=== PATIENT | female | born 1950 | race Caucasian/White ===

== ENCOUNTER → 2024-11-07 14:19 | Outpatient (BNVA) | payer MEDICARE, SELFPAY | PROVIDERS: PCP Family Medicine; Visit Provider Family Medicine | DX: E78.5 Hyperlipidemia, unspecified (principal); R91.8 Other nonspecific abnormal finding of lung field; C34.90 Malignant neoplasm of unspecified part of unspecified bronchus or lung; Z95.828 Presence of other vascular implants and grafts; K21.9 Gastro-esophageal reflux disease without esophagitis; C50.919 Malignant neoplasm of unspecified site of unspecified female breast; M54.50 Low back pain, unspecified; R00.0 Tachycardia, unspecified | CPT/HCPCS: 85025 ==

== ENCOUNTER 2024-11-18 11:17 | Outpatient (CLI) | payer MEDICARE, SELFPAY ==
--- NOTE | 2024-11-18 11:30 | PETR_ITS ---
PROCEDURE INFORMATION: Exam: PET/CT Skull Base to Mid-thigh Exam date and time: 11/18/2024 12:52 PM Age: 74 years old Clinical indication: Condition or disease; Primary cancer: HX of breast cancer, lumpectomy chemo radiation. Lung mets or lung cancer 2 years later. New lung nodule; Follow-up oncological assessment LABS AND CLINICAL REPORTS: Glucose: 100 mg/dl Treatment strategy for malignancy (PET staging): Restaging (PS) TECHNIQUE: Imaging protocol: Following at least four-hour fasting and following the injection of radiopharmaceutical, low dose CT images were obtained. Then, PET images were obtained. Attenuation corrected images were constructed using the CT scan. Fused images of PET and CT were reviewed. The standardized uptake values (SUV) reported below are maximum values within a region of interest, expressed in gm/ml. Exam includes orbital meatal line to mid-thigh. SUV normalization method: BodyWeight Radiopharmaceutical: 11.21 mCi F-18 FDG (Fluorodeoxyglucose), IV. Time of imaging post radiopharmaceutical administration: 46 minutes Injection site: left ac COMPARISON: No relevant prior studies available. FINDINGS: Tubes, catheters and devices: Right-sided Port-A-Cath terminates at the superior cavoatrial junction. Brain: Visualized brain has normal physiologic uptake. Pharynx: No abnormal uptake. Larynx: No abnormal uptake. Lungs, pleura and trachea: Minimal FDG uptake is seen associated with the 9 mm left upper lobe pulmonary nodule with SUV max 1.4. Calcified granuloma in the right lung. Right basilar atelectasis. Heart: Normal physiologic uptake. Mediastinal space: No abnormal uptake. Liver: No abnormal uptake. Gallbladder and biliary ducts: Cholelithiasis. Pancreas: No abnormal uptake. Spleen: Calcified splenic granulomas. Adrenal glands: No abnormal uptake. Kidneys and ureters: Normal physiologic uptake. Stomach and bowel: Large hiatal hernia containing stomach and transverse colon. Reproductive: Pessary device in the vagina. Vasculature: No abnormal uptake. Lymph nodes: No abnormal uptake. No lymphadenopathy in the head, neck, chest, abdomen, pelvis, and extremities. Skeleton: There is some increased FDG uptake within the inferior aspect of the T11 vertebral body with SUV max 4.6. No definite associated lesion is seen. Soft tissues: No abnormal uptake in the visualized head, neck, chest, abdomen, pelvis, and extremities. METRICS: Mediastinal blood pool: SUV max is 2.9 Liver uptake: SUV max is 3.5 PET/PET skull to thigh SUBS [id number] IMPRESSION: 1. Minimal FDG uptake is seen associated with the 9 mm left upper lobe pulmonary nodule. This could be infectious or inflammatory, though attention on follow-up is recommended, as metastatic disease is not entirely excluded. 2. There is some increased FDG uptake within the inferior aspect of the T11 vertebral body with SUV max 4.6. No definite associated lesion is seen. Consider MRI to further evaluate. A subtle metastatic lesion or acute/subacute compression fracture is not excluded.
== END 2024-11-18 11:18 | disposition home or self-care (01) ==
PROVIDERS: PCP Family Medicine; Visit Provider Family Medicine
DX: R91.1 Solitary pulmonary nodule (principal); Z85.3 Personal history of malignant neoplasm of breast; J98.11 Atelectasis; K80.20 Calculus of gallbladder without cholecystitis without obstruction; K44.9 Diaphragmatic hernia without obstruction or gangrene; Z96.0 Presence of urogenital implants
CPT/HCPCS: 78815; A9552

== ENCOUNTER 2024-12-08 14:26 | Oncology outpatient (recurring) (ONCR) | payer MEDICARE, SELFPAY ==
[2024-12-08 16:16] LABS: Basophils # 0.1 10^3/uL (0.0-0.1); Basophils % 1.1 %; Eosinophils # 0.2 10^3/uL (0.0-0.8); Eosinophils % 3.2 %; Hematocrit 37.6 % (36-47); Lymphocytes # 1.9 10^3/uL (0.8-4.8); Lymphocytes % 35.3 %; Mean Corpuscular HGB Conc 33.8 g/dL (30-55); Mean Corpuscular Hemoglobin 29.5 pg (27-33); Mean Corpuscular Volume 87.4 fl (85-98); Mean Platelet Volume 9.3 fL (7.4-10.4); Monocytes # 0.4 10^3/uL (0.2-0.9); Monocytes % 8.2 %; Neutrophils # 2.78 10^3/uL (1.8-7.7); Neutrophils % 51.8 %; Nucleated Red Blood Cells % 0 %; Platelet Count 168 10^3/cmm (157-399); Red Cell Distribution Width 12.6 % (12.1-15.1); White Blood Count 5.36 10^3/uL (3.29-11.43)
[2024-12-08 16:50] LABS: Alanine Aminotransferase 9 U/L (0-33); Albumin Level 4.2 g/dL (3.5-5.2); Alkaline Phosphatase 113 U/L (35-105); Anion Gap 15.8 (5-19); Aspartate Amino Transferase 15 U/L (0-32); Blood Urea Nitrogen 14 mg/dL (8-23); CA 15-3 21.6 U/mL (0-25); Carbon Dioxide 26 mmol/L (22-29); Chloride 106 mmol/L (98-107); Creatinine Clr Calc Pharmacy 64.5803; Globulin 2.3 g/dL (1.3-4.6); Glucose 107 mg/dL (65-115); Lactate Dehydrogenase 195 U/L (135-214); Osmolality Calculated 299 mOsm/kg (285-295); Potassium 3.8 mmol/L (3.5-5.1); Sodium 144 mmol/L (136-145); Total Protein 6.5 g/dL (6.6-8.7)
== END 2024-12-09 23:59 | disposition home or self-care (01) ==
PROVIDERS: PCP Family Medicine; Visit Provider Internal Medicine
DX: C78.02 Secondary malignant neoplasm of left lung (principal); Z85.3 Personal history of malignant neoplasm of breast; R91.1 Solitary pulmonary nodule; R00.0 Tachycardia, unspecified; K21.9 Gastro-esophageal reflux disease without esophagitis; Z46.89 Encounter for fitting and adjustment of other specified devices; Z95.828 Presence of other vascular implants and grafts; Z92.21 Personal history of antineoplastic chemotherapy; Z92.3 Personal history of irradiation; Z92.25 Personal history of immunosuppression therapy
CPT/HCPCS: 36591; 80053; 83615; 85025; 86300; 99205

== ENCOUNTER 2024-12-29 12:22 | Oncology outpatient (recurring) (ONCR) | payer MEDICARE, SELFPAY ==
--- NOTE | 2024-12-14 13:00 | MRR_ITS ---
PROCEDURE INFORMATION: Exam: MR Thoracic Spine Without and With Contrast Exam date and time: 12/14/2024 1:30 PM Age: 74 years old Clinical indication: Metastatic breast cancer with lung metastasis. Followup of abnormal radiologic finding in the thoracic spine. Indeterminate increased uptake within T11 vertebral body on the prior PET-CT on 11/18/2024, metastasis versus acute/subacute compression fracture. TECHNIQUE: Imaging protocol: Magnetic resonance imaging of the thoracic spine without and with contrast. Contrast material: MULTIHANCE; Contrast volume: 14 ml; Contrast route: INTRAVENOUS (IV); COMPARISON: PT PET skull to thigh INIT [id number] 11/18/2024 and 04/08/2024 FINDINGS: Bones/joints: Normal alignment. No abnormal signal suspicious for mass. Moderate compression fracture of T12 with anterior wedging and slight retropulsion is stable since 11/18/2024 new since 04/08/2024 with mild bone marrow edema along the upper endplate and slight contrast enhancement indicating late subacute nature. Mild compression fracture of T11 with no anterior wedging or retropulsion is stable since 11/18/2024 new since 04/08/2024 with extensive bone marrow edema and contrast enhancement involving the entire vertebral body. Spinal cord: Normal signal. No cord compression. T1-T2: No significant disc disease. No spinal stenosis. T2-T3: No significant disc disease. No spinal stenosis. T3-T4: No significant disc disease. No spinal stenosis. T4-T5: No significant disc disease. No spinal stenosis. T5-T6: No significant disc disease. No spinal stenosis. T6-T7: Small left central disc protrusion. No spinal stenosis. T7-T8: Minimal diffuse central disc bulge. No spinal stenosis. T8-T9: Minimal diffuse central disc bulge. No spinal stenosis. T9-T10: Minimal diffuse central disc bulge. No spinal stenosis. T10-T11: Mild diffuse central disc bulge. No spinal stenosis. T11-T12: Small diffuse marginal disc osteophyte complex. No spinal stenosis. T12-L1: Diffuse broad-based central disc bulge. No severe spinal canal stenosis. No significant neural foraminal narrowing. Soft tissues: Incidental 8 mm cyst in the left T12-L1 neural foramen. Stomach and bowel: There is stable large hiatal hernia containing the entire stomach. MR/MR thoracic spine wo/w [id number] IMPRESSION: No findings suspicious for bone metastases. Acute/subacute mild compression fracture of T11 and late subacute moderate compression fracture of T12 stable since 11/18/2024 new since 04/08/2024.
[2024-12-14] MEDS: gadobenate dimeglumine 20 mL vial 14 ML IV (14:04)
== END 2025-01-09 23:59 | disposition home or self-care (01) ==
PROVIDERS: PCP Family Medicine; Visit Provider Internal Medicine
DX: Z08 Encounter for follow-up examination after completed treatment for malignant neoplasm (principal); Z85.3 Personal history of malignant neoplasm of breast; C78.02 Secondary malignant neoplasm of left lung; R91.1 Solitary pulmonary nodule; R00.0 Tachycardia, unspecified; K21.9 Gastro-esophageal reflux disease without esophagitis; Z95.828 Presence of other vascular implants and grafts; E78.5 Hyperlipidemia, unspecified; Z87.891 Personal history of nicotine dependence; M54.9 Dorsalgia, unspecified; Z92.21 Personal history of antineoplastic chemotherapy; Z92.3 Personal history of irradiation; Z46.89 Encounter for fitting and adjustment of other specified devices; Z92.25 Personal history of immunosuppression therapy
CPT/HCPCS: 72157; 99214

== ENCOUNTER 2025-01-09 15:24 | Outpatient (CLI) | payer MEDICARE, SELFPAY ==
--- NOTE | 2025-01-09 15:30 | XR_ITS ---
WS: [id number] DEXA (DUAL ENERGY X-RAY ABSORPTIOMETRY) Bone mineral density was performed using a Ovalis machine. HISTORY: compression fracture T11 and T12, kyphosis COMPARISON: None available. Lumbar spine BMD (L1-L4): 0.885 g/cm2 T score: -2.5 Z score: -0.8 Total hip BMD: Left: 0.648 g/cm2. T score: -2.9 Z score: -1.3 Right: 0.566 g/cm2. T score: -3.5 Z score: -2.0 10 year probability of a major osteoporotic fracture is 26.2%. XR/XR DEXA axial skeleton* [id number] IMPRESSION: OSTEOPOROSIS based upon the WHO classification for females.
== END 2025-01-09 15:25 | disposition home or self-care (01) ==
PROVIDERS: PCP Family Medicine; Visit Provider Nurse Practitioner Family
DX: Z78.0 Asymptomatic menopausal state (principal); M81.0 Age-related osteoporosis without current pathological fracture
CPT/HCPCS: 77080

== ENCOUNTER 2025-02-13 11:03 | Outpatient (CLI) | payer MEDICARE, SELFPAY ==
--- NOTE | 2025-02-13 12:00 | CT_ITS ---
WS: [id number] CT CHEST AND ABDOMEN WITH CONTRAST HISTORY: lung cancer TECHNIQUE: Axial imaging is performed through the chest and abdomen with IV and oral contrast.. Sagittal and coronal reformats. All CT scans at [facility] use at least one of these dose optimization techniques: automated exposure control; mA and/or kV adjustment per patient size (includes targeted exams where dose is matched to clinical indication); or iterative reconstruction. CONTRAST: Omnipaque 350; 100 mL IV. DLP: 361.40 mGy.cm COMPARISON: PET/CT 11/18/[address]: Pulmonary hyperexpansion. 8.7 mm LEFT upper lobe pulmonary nodule corresponds to the nodule seen on recent PET/CT with minimal FDG uptake. No increase in size. No additional mass. Compressive atelectasis RIGHT lower lobe due to a large hiatal hernia containing 6 stomach and colon. No pericardial or pleural effusions. No adenopathy. Minimal atherosclerosis aorta. Normal size pulmonary artery. Heart is being displaced by the large hernia containing stomach and colon. Abdomen CT: Normal appearance of the liver and spleen. Normal portal vein. Mildly contracted gallbladder with stones. Splenic granulomata. Normal portal vein. Normal pancreas. No adrenal mass. No renal obstruction or mass. Mild atherosclerosis aorta. No ascites or adenopathy. No GI tract obstruction. Mild anterior wedging of T11 and T12. No destructive bone lesions. Vacuum disc phenomenon at several thoracic and lumbar vertebral levels. CT/CT chest abd w con*[id number] IMPRESSION: 1. Stable 8.7 mm LEFT upper lobe pulmonary nodule since 11/18/2024. Minimal FDG uptake on recent PET/CT. Recommend continued serial CT evaluation to document l yan-term stability. 2. No mediastinal or hilar adenopathy. 3. Large hiatal hernia containing stomach and colon. 4. Cholelithiasis without acute cholecystitis. 5. No renal obstruction. 6. Mild anterior wedging of T11 and T12, osteoporotic compression fractures.
[2025-02-13 12:03] LABS: Blood Urea Nitrogen 10 mg/dL (8-23)
[2025-02-13] MEDS: iohexol 350 mg/mL 500 mL Btl (per mL) PO (12:12)
[2025-02-13] MEDS: iohexol 350 mg/mL 500 mL Btl (per mL) IV (12:12)
== END 2025-02-13 11:04 | disposition home or self-care (01) ==
LOC: RAD 11:08
PROVIDERS: PCP Family Medicine; Visit Provider Internal Medicine
DX: C78.00 Secondary malignant neoplasm of unspecified lung (principal); R91.1 Solitary pulmonary nodule; K44.9 Diaphragmatic hernia without obstruction or gangrene; K80.20 Calculus of gallbladder without cholecystitis without obstruction; M48.54XA Collapsed vertebra, not elsewhere classified, thoracic region, initial encounter for fracture; D73.89 Other diseases of spleen; I70.0 Atherosclerosis of aorta; M51.34 Other intervertebral disc degeneration, thoracic region; M51.369 Other intervertebral disc degeneration, lumbar region without mention of lumbar back pain or lower extremity pain
CPT/HCPCS: 71260; 74160; 82565; 84520

== ENCOUNTER 2025-02-16 09:00 | Oncology outpatient (recurring) (ONCR) | payer MEDICARE, SELFPAY ==
[2025-02-16 09:42] LABS: Basophils # 0.1 10^3/uL (0.0-0.1); Basophils % 0.9 %; Eosinophils # 0.1 10^3/uL (0.0-0.8); Eosinophils % 1.7 %; Hematocrit 41.9 % (36-47); Lymphocytes # 1.8 10^3/uL (0.8-4.8); Lymphocytes % 26.4 %; Mean Corpuscular HGB Conc 33.2 g/dL (30-55); Mean Corpuscular Volume 87.5 fl (85-98); Mean Platelet Volume 9.5 fL (7.4-10.4); Monocytes # 0.4 10^3/uL (0.2-0.9); Monocytes % 5.7 %; Neutrophils # 4.26 10^3/uL (1.8-7.7); Neutrophils % 64.1 %; Nucleated Red Blood Cells % 0 %; Platelet Count 168 10^3/cmm (157-399); Red Blood Count 4.79 10^6/uL (3.85-5.65); Red Cell Distribution Width 12.4 % (12.1-15.1); White Blood Count 6.64 10^3/uL (3.29-11.43)
[2025-02-16 10:14] LABS: Alanine Aminotransferase 9 U/L (0-33); Albumin Level 4.2 g/dL (3.5-5.2); Alkaline Phosphatase 84 U/L (35-105); Anion Gap 17.9 (5-19); Aspartate Amino Transferase 15 U/L (0-32); Blood Urea Nitrogen 12 mg/dL (8-23); Calcium 9.2 mg/dL (8.5-10.5); Carbon Dioxide 23 mmol/L (22-29); Chloride 103 mmol/L (98-107); Creatinine Clr Calc Pharmacy 63.6699; Globulin 2.4 g/dL (1.3-4.6); Glucose 95 mg/dL (65-115); Lactate Dehydrogenase 180 U/L (135-214); Osmolality Calculated 290 mOsm/kg (285-295); Potassium 3.9 mmol/L (3.5-5.1); Sodium 140 mmol/L (136-145); Total Bilirubin 1.7 mg/dL (0.15-1.2); Total Protein 6.6 g/dL (6.6-8.7)
== END 2025-03-11 23:59 | disposition home or self-care (01) ==
PROVIDERS: PCP Family Medicine; Visit Provider Internal Medicine
DX: Z53.9 Procedure and treatment not carried out, unspecified reason; C78.02 Secondary malignant neoplasm of left lung; R91.1 Solitary pulmonary nodule; R00.0 Tachycardia, unspecified; K21.9 Gastro-esophageal reflux disease without esophagitis; Z95.828 Presence of other vascular implants and grafts; E78.5 Hyperlipidemia, unspecified; Z87.891 Personal history of nicotine dependence; M54.9 Dorsalgia, unspecified; Z92.21 Personal history of antineoplastic chemotherapy; Z92.3 Personal history of irradiation; Z46.89 Encounter for fitting and adjustment of other specified devices; Z92.25 Personal history of immunosuppression therapy; C78.00 Secondary malignant neoplasm of unspecified lung; M48.54XA Collapsed vertebra, not elsewhere classified, thoracic region, initial encounter for fracture; Z17.1 Estrogen receptor negative status [ER-]
CPT/HCPCS: 36591; 80053; 83615; 85025; 86300; 99213

== ENCOUNTER 2025-06-08 08:34 | Oncology outpatient (recurring) (ONCR) | payer MEDICARE, SELFPAY ==
--- NOTE | 2025-06-08 08:45 | NM_ITS ---
WS: [id number] NUCLEAR MEDICINE BONE SCAN Radiopharmaceutical: 26.1 Tc-99m MDP mCi IV Injection site: Antecubital Postinjection imaging delay: 1 hr CLINICAL INFORMATION: osteoporosis COMPARISON: PET/CT 11/18/2024 and MRI 12/14/2024 FINDINGS: Thoracolumbar scoliosis. Bone lesions: Focal uptake in the T11 vertebral body corresponding to the prior PET/CT and MRI findings of compression fracture. Tiny low-grade punctate focus of uptake within the sternum is nonspecific. This focus demonstrates faint low- grade uptake but metastatic disease not entirely excluded. Otherwise no evidence of metastatic bony disease. Soft tissue contours: Normal. Kidneys: Normal. Other findings: None. NM/NM bone scan whole body* [id number] IMPRESSION: 1. Uptake within the T11 vertebral body compatible with previously described c ompression fractures seen on the prior studies 2. Single punctate low-grade focus of uptake within the sternum is nonspecific and could be degenerative. Metastatic disease not entirely excluded. Recommend continued surveillance. 3. Otherwise no evidence of metastatic disease.
[2025-06-08] MEDS: iohexol 350 mg/mL 500 mL Btl (per mL) PO (09:57)
[2025-06-08 10:14] LABS: Blood Urea Nitrogen 12 mg/dL (8-23)
[2025-06-08] MEDS: iohexol 350 mg/mL 500 mL Btl (per mL) IV (10:31)
--- NOTE | 2025-06-08 12:00 | CT_ITS ---
WS: [id number] CT CHEST, ABDOMEN AND PELVIS WITH CONTRAST HISTORY: malignant neoplasm metastatic, history of lung cancer and breast cancer. TECHNIQUE: Contiguous 5 mm axial imaging performed through the chest, abdomen and pelvis with IV contrast, oral contrast has been provided. Coronal and sagittal reformats chest. Coronal and sagittal reformats through the abdomen and pelvis. All CT scans at [facility] use at least one of these dose optimization techniques: automated exposure control; mA and/or kV adjustment per patient size (includes targeted exams where dose is matched to clinical indication); or iterative reconstruction. CONTRAST: Omnipaque 350; 100 mL IV. DLP: 607.95 mGy.cm COMPARISON: Prior CT chest, abdomen 02/13/2025, PET/CT 11/18/2024 and 12/28/[address]: Pulmonary hyperexpansion. Reidentified is a slightly irregular 9.6 mm nodule in the LEFT upper lobe which has not changed in size since 12/28/2023. Low-level activity on the recent PET/CT. No new or additional pulmonary nodules. No mass. Compressive atelectasis RIGHT lower lobe. Normal size aorta with mild atherosclerosis. Normal size pulmonary artery. Normal size heart. No pericardial or pleural effusions. No mediastinal or hilar adenopathy. Large hiatal hernia. There is a large diaphragmatic defect. The hernia contains stomach and colon. The entire stomach does appear to be within the thorax. No obstructive pattern. Abdomen CT: Normal size liver. There is a tiny, 2 mm focus in the posterior RIGHT lobe of the liver which was also present on the prior study. No new lesions. Normal portal vein. No intrahepatic duct dilatation. Gallbladder is contracted with stones. Spleen is normal size with granulomata. Negative denny creas. No renal obstruction or solid mass. No GI tract obstruction. No colitis or obstruction. Patient does have a pessary deep within the pelvis. No appendicitis. No ascites. No adenopathy. No hernia. Pelvic CT: Nondistended urinary bladder. Atrophic uterus. Pessary is identified. No free fluid or adenopathy. Advanced degenerative disc disease and vacuum disc phenomenon at the thoracolumbar junction. Mild anterior wedging of T11. No destruction or osteolytic change. There is minimal anterior wedging of T10 and L4. Vacuum disc phenomenon from T9-10 through L1-2: CT/CT chest abdpel w/*[id number] IMPRESSION: 1. Stable LEFT upper lobe slightly irregular 9.6 mm nodule since 12/28/2023. 2. No new pulmonary nodule or mass. 3. No mediastinal or hilar adenopathy. 4. Large hiatal hernia containing stomach and colon. No obstruction. 5. Cholelithiasis without acute cholecystitis. 6. No metastatic disease within the abdomen or pelvis. 7. No ascites. 8. Mild anterior wedging of T11 consistent with an osteoporotic compression fr acture.
== END 2025-06-11 23:59 | disposition home or self-care (01) ==
LOC: RAD 08:39 → ONCMED 09:00
PROVIDERS: PCP Family Medicine; Visit Provider Internal Medicine
DX: Z53.9 Procedure and treatment not carried out, unspecified reason (principal); C78.02 Secondary malignant neoplasm of left lung; R91.1 Solitary pulmonary nodule; R00.0 Tachycardia, unspecified; K21.9 Gastro-esophageal reflux disease without esophagitis; Z95.828 Presence of other vascular implants and grafts; E78.5 Hyperlipidemia, unspecified; Z87.891 Personal history of nicotine dependence; M54.9 Dorsalgia, unspecified; Z92.21 Personal history of antineoplastic chemotherapy; Z92.3 Personal history of irradiation; Z46.89 Encounter for fitting and adjustment of other specified devices; Z92.25 Personal history of immunosuppression therapy; C78.00 Secondary malignant neoplasm of unspecified lung; M48.54XA Collapsed vertebra, not elsewhere classified, thoracic region, initial encounter for fracture; Z17.1 Estrogen receptor negative status [ER-]; Z79.811 Long term (current) use of aromatase inhibitors; M81.0 Age-related osteoporosis without current pathological fracture
CPT/HCPCS: 71260; 74177; 78306; 82565; 84520; A9561

== ENCOUNTER 2025-06-15 12:25 | Oncology outpatient (recurring) (ONCR) | payer MEDICARE, SELFPAY ==
[2025-06-15 13:18] LABS: Hematocrit 40.5 % (36-47); Hemoglobin 13.60 g/dL (11.27-16.99); Mean Corpuscular HGB Conc 33.6 g/dL (30-55); Mean Corpuscular Hemoglobin 29.1 pg (27-33); Mean Corpuscular Volume 86.7 fl (85-98); Nucleated Red Blood Cells % 0 %; Platelet Count 174 10^3/cmm (157-399); Red Blood Count 4.67 10^6/uL (3.85-5.65); White Blood Count 6.00 10^3/uL (3.29-11.43)
[2025-06-15 13:44] LABS: Alanine Aminotransferase 9 U/L (0-33); Albumin Level 4.2 g/dL (3.5-5.2); Alkaline Phosphatase 73 U/L (35-105); Anion Gap 14.6 (5-19); Aspartate Amino Transferase 14 U/L (0-32); Blood Urea Nitrogen 11 mg/dL (8-23); Calcium 8.9 mg/dL (8.5-10.5); Carbon Dioxide 27 mmol/L (22-29); Chloride 104 mmol/L (98-107); Creatinine Clr Calc Pharmacy 56.2719; Globulin 2.5 g/dL (1.3-4.6); Glucose 119 mg/dL (65-115); Osmolality Calculated 295 mOsm/kg (285-295); Potassium 3.6 mmol/L (3.5-5.1); Sodium 142 mmol/L (136-145); Total Protein 6.7 g/dL (6.6-8.7)
== END 2025-07-11 23:59 | disposition home or self-care (01) ==
PROVIDERS: PCP Family Medicine; Visit Provider Internal Medicine
DX: Z08 Encounter for follow-up examination after completed treatment for malignant neoplasm (principal); Z85.3 Personal history of malignant neoplasm of breast; Z85.118 Personal history of other malignant neoplasm of bronchus and lung; R91.1 Solitary pulmonary nodule; M81.0 Age-related osteoporosis without current pathological fracture; Z92.21 Personal history of antineoplastic chemotherapy; Z92.25 Personal history of immunosuppression therapy; Z79.899 Other long term (current) drug therapy; Z87.891 Personal history of nicotine dependence; Z92.3 Personal history of irradiation; Z95.828 Presence of other vascular implants and grafts
CPT/HCPCS: 36591; 80053; 83615; 85025; 99213

== ENCOUNTER 2025-08-08 10:56 | Oncology outpatient (recurring) (ONCR) | payer MEDICARE, SELFPAY ==
[2025-08-08 12:03] LABS: Thyroid Stimulating Hormone 1.25 uIU/mL (0.27-4.20); Vitamin B12 345 pg/mL (232-1245)
[2025-08-08 12:28] LABS: Free T4 Free Thyroxine 1.55 ng/dL (0.82-1.77)
== END 2025-08-11 23:59 | disposition home or self-care (01) ==
LOC: ONCMED 10:57
PROVIDERS: PCP Family Medicine; Visit Provider Internal Medicine
DX: Z45.2 Encounter for adjustment and management of vascular access device (principal); Z95.828 Presence of other vascular implants and grafts
CPT/HCPCS: 82306; 82607; 84439; 84443; 96523

== ENCOUNTER 2025-09-13 10:27 | Oncology outpatient (recurring) (ONCR) | payer MEDICARE, SELFPAY ==
--- NOTE | 2025-09-13 10:33 | MM_ITS ---
WS: [email or web address] BILATERAL 3D TOMOSYNTHESIS DIGITAL DIAGNOSTIC MAMMOGRAPHY WITH CAD CLINICAL INFORMATION: HX OF BREAST CANCER HISTORY: History of prior LEFT lumpectomy COMPARISON: 2022 TECHNIQUE: Bilateral CC, MLO, and ML views. FINDINGS: Scattered fibroglandular densities bilaterally. Postoperative changes prior LEFT lumpectomy with surgical clips. Parenchymal scarring LEFT breast. Vascular calcifications. Punctate and lucent centered calcifications bilaterally. No suspicious focal mass, asymmetry, calcifications, or architectural distortion. No evidence of malignancy. MM/MM diag tomosynthesis [id number] IMPRESSION: DENSITY: There are scattered areas of fibroglandular density. BI-RADS: 2 - Benign. FOLLOW UP: 1 Year Follow-up Recommend return to annual diagnostic mammography.
== END 2025-10-11 23:59 | disposition home or self-care (01) ==
PROVIDERS: PCP Family Medicine; Visit Provider Internal Medicine
DX: Z85.3 Personal history of malignant neoplasm of breast (principal); R92.323 Mammographic fibroglandular density, bilateral breasts; Z98.890 Other specified postprocedural states; N64.89 Other specified disorders of breast; I70.90 Unspecified atherosclerosis; R92.1 Mammographic calcification found on diagnostic imaging of breast
CPT/HCPCS: 77062; G0279